=== PATIENT | male | born 1960 | race African-American/Black ===

== ENCOUNTER 2023-03-20 08:00 | Day surgery (SDC) | payer BC ==
[2023-03-15 16:22] VITALS: BMI 23.6
[~2023-03-20 08:00] MED LIST: BUPIVACAINE HCL/PF 0.75% 10 ML VIAL NR ONE; LIDOCAINE HCL 1% PRESERVATIVE FREE - 30ML VIAL IJ ONE
[2023-03-20 08:11] VITALS: RESP 18
[2023-03-20] MEDS ORDERED: ACETAMINOPHEN 500 MG TABLET (FP) PO PRN (11:57)
[2023-03-20 14:11] VITALS: BP 123/65; PULSE 52; TEMP 98.8
== END 2023-03-20 12:12 | disposition home or self-care (01) ==
LOC: JASU-SURG 08:00
PROVIDERS: ATTEND Pain Medicine Pain Medicine
PROC: 3E0T3BZ Introduction of Anesthetic Agent into Peripheral Nerves and Plexi, Percutaneous Approach (ICD-10-PCS; principal; 2023-03-20 10:45)
DX: M47.816 Spondylosis without myelopathy or radiculopathy, lumbar region (principal)
CPT/HCPCS: 76000-TC-FY